=== PATIENT | female | born 1950 | race African-American/Black ===

== ENCOUNTER 2019-02-26 03:41 | Emergency (ER) | payer MEDICARE ==
[~2019-02-26] VITALS: Ht 162.6 cm; Wt 77.1 kg
[~2019-02-26 03:41] MED LIST: ASCO500T2 PO; FLUO20TA11 PO; NORT25CA PO; OMEP40CA5 PO; OXYC15TA PO; PREN1TAB58 PO
[2019-02-26 03:45] VITALS: BP 168/73
[2019-02-26] MEDS ORDERED: DEXAMETHASONE SOD PHOS 20 MG/5 ML VIAL. IM ONE (04:15)
[2019-02-26] MEDS ORDERED: DEXAMETHASONE SOD PHOS 4 MG/ML VIAL ONE ×2 (04:21→04:26)
[2019-02-26] MEDS ORDERED: DEXAMETHASONE SOD PHOS 4 MG/ML VIAL IM ONE (04:30)
[2019-02-26] MEDS ORDERED: BENZOCAINE ONE 20% MUCOSAL SPRAY. MM (05:00)
--- NOTE | 2019-02-26 05:17 | PHYS DOC ---
Past Medical History Past Medical History: Anxiety, GERD, [place], Other Additional Past Medical Histor: RLS, SPINAL STENOSIS Past Surgical History: Hysterectomy, Tubal ligation Alcohol Use: None Drug Use: None Adult General Chief Complaint Chief Complaint: SORE THROAT [facility] HPI Patient is a 68 year old f p/w sore throat x one day hurts to swallow no fever thoguht she would choke on her oxycodone at three am so came to er for eval breathing fine no chest pain Review of Systems Review of Systems Constitutional: Denies fever or chills [] Eyes: Denies change in visual acuity, redness, or eye pain [] HENT Respiratory: Denies cough or shortness of breath [] Cardiovascular: No additional information not addressed in HPI [] Neurologic: Denies headache, focal weakness or sensory changes [] All other systems were reviewed and found to be within normal limits, except as documented in this note. Current Medications Current Medications Current Medications Medications (Trade) Dose Ordered Sig/Amy Start Time Stop Time Status Last Admin Dose Admin Benzocaine (Hurricaine One) 1 spray 1X ONCE 02/26/19 05:00 02/26/19 05:01 DC Dexamethasone Sodium Phosphate (Decadron) 6 mg 1X ONCE 02/26/19 04:30 02/26/19 04:31 DC 02/26/19 04:30 6 MG Allergies Allergies Allergies Coded Allergies Type Severity Reaction Last Updated Verified Tetracyclines Allergy Intermediate 10/14/14 No Physical Exam Physical Exam Constitutional: Well developed, well nourished, no acute distress, non-toxic appearance. [] HENT: Normocephalic, atraumatic, bilateral external ears normal, oropharynx moist, no oral exudates, nose normal. [] reprorudced pain with swallowing no exudate no lymphadenopathy Eyes: PERRLA, EOMI, conjunctiva normal, no discharge. [] Neck: Normal range of motion, no tenderness, supple, no stridor. [] Cardiovascular:Heart rate regular rhythm, no murmur [] Lungs & Thorax: Bilateral breath sounds clear to auscultation [] Abdomen: Bowel sounds normal, soft, no tenderness, no masses, no pulsatile masses. [] Skin: Warm, dry, no erythema, no rash. [] Back: No tenderness, no CVA tenderness. [] Extremities: No tenderness, no cyanosis, no clubbing, ROM intact, no edema. [] Neurologic: Alert and oriented X 3, normal motor function, normal sensory function, no focal deficits noted. [] Psychologic: Affect normal, judgement normal, mood normal. [] Current Patient Data Vital Signs Vital Signs Date Time Temp Pulse Resp B/P (MAP) Pulse Ox O2 Delivery O2 Flow Rate FiO2 02/26/19 03:45 98.7 82 20 168/73 (104) 98 Room Air 98.7 EKG EKG [] Radiology/Procedures Radiology/Procedures [] Course & Med Decision Making Course & Med Decision Making Pertinent Labs and Imaging studies reviewed. (See chart for details) strep swab eng per staff genetic counselor decadron given hurricane spray given per pt request of topical tx. discussed natural course of likely viral pharyngitis, f/u instructions etc pt agreeable ultimately. no evidence of [employer] or retropharyngeal abscess clinically [] Dragon Disclaimer Dragon Disclaimer This electronic medical record was generated, in whole or in part, using a voice recognition dictation system. Departure Departure Impression: Primary Impression: Pharyngitis Disposition: HOME, SELF-CARE Condition: STABLE Patient Instructions: Sore Throat, [id number] SUYAPA VASQUEZ MD Feb 26, 2019 05:17
== END 2019-02-26 05:15 | disposition home or self-care (01) ==
LOC: ER 03:41
DX: J02.9 Acute pharyngitis, unspecified (principal); R13.10 Dysphagia, unspecified; K21.9 Gastro-esophageal reflux disease without esophagitis; I25.2 Old myocardial infarction; Z88.1 Allergy status to other antibiotic agents
CPT/HCPCS: 87070; 87880; 96372; 99283; J1100